=== PATIENT | female | born 1995 | race Caucasian/White ===

== ENCOUNTER 2017-02-18 15:51 | Outpatient (CLI) | payer OTHER ==
[~2017-02-18] VITALS: Ht 170.2 cm; Wt 101.4 kg
[2017-02-18 15:15] VITALS: BP 112/56; PULSE 92; TEMP 98.4
[2017-02-18] MEDS ORDERED: PRENATAL1 TA7 PO (16:01)
== END 2017-02-18 16:10 | disposition home or self-care (01) ==
LOC: LDRO 15:51 → LDR 15:52 → LDRO 16:10
DX: O46.93 Antepartum hemorrhage, unspecified, third trimester (principal); Z3A.32 32 weeks gestation of pregnancy
CPT/HCPCS: OP